=== PATIENT | female | born 1960 | race Caucasian/White ===

== ENCOUNTER 2017-04-08 11:13 | Emergency (ER) | payer MEDICARE, BC ==
[2017-04-08] MEDS ORDERED: Dexamethasone 4 MG/ML SDV IVPUSH ONE (11:44)
[2017-04-08] MEDS ORDERED: Cefepime 2 GM in Sodium Chloride 0.9% 50 ML IV ONE (11:51)
--- NOTE | 2017-04-08 11:54 | EDM.PDOC ---
ED HPI GENERAL MEDICAL PROBLEM - General Chief Complaint: Respiratory Problem Stated Complaint: TROUBLE BREATHING Time Seen by Provider: 04/08/17 11:28 Source of Information: Reports: Patient History Limitations: Reports: No Limitations - History of Present Illness INITIAL COMMENTS - FREE TEXT/NARRATIVE: Trang is a 57 year old female who presents to the ER with c/o trouble breathing. She reports she has a history of breast cancer with mets to her lungs. She started an immunotherapy regimen on February 16, 2017. Her last infusion was 2017. She reports that a side effect of the immunotherapy is inflammation. She reports that since her last infusion she has felt fatigued and had increased work of breathing. She reports that yesterday into today this has gotten worse. She reports she gets very fatigued and short of breath with any activity. Her O2 sats on initial presentation were 77% on RA. O2 sat increased to 94% on 3 L O2. Does report she has had a decreased appetite. Patient denies any pain. Denies any N/V/D, fever, chills. Does report she checks her temperature regularly. Her temperature last night was 99.5 deg F. She reports she did take some Tylenol and it has been normal ever since. She has no other complaints outside of the shortness of breath. She does have some obvious inflammation to her hands. Reports she has had this rash on her hands since starting the immunotherapy. Onset Date: 04/06/17 Duration: Getting Worse Location: Reports: Chest Quality: Reports: Other (difficulty breathing) Improves with: Reports: None Worsens with: Reports: Movement Context: Reports: Activity Associated Symptoms: Reports: Shortness of Breath, Weakness. 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 Denies: Chills HEENT: Reports: No Symptoms Respiratory: Reports: Shortness of Breath, Cough, Sputum. Denies: Wheezing, Pleuritic Chest Pain, Hemoptysis Cardiovascular: Reports: Dyspnea on Exertion, Other (tachycardia). Denies: Chest Pain, Blood Pressure Problem, Edema, Lightheadedness, Palpitations, Syncope Endocrine: Reports: Fatigue GI/Abdominal: Reports: Decreased Appetite. Denies: Abdominal Pain, Black Stool , Bloody Stool, Constipation, Diarrhea, Nausea, Vomiting : Reports: No Symptoms. Denies: Dysuria, Frequency, Urgency Musculoskeletal: Reports: No Symptoms Skin: Reports: Rash (bilateral hands) Neurological: Reports: Weakness. Denies: Confusion, Dizziness, Headache, Syncope Psychiatric: Reports: Anxiety Hematologic/Lymphatic: Reports: No Symptoms Immunologic: Reports: No Symptoms ED EXAM, GENERAL - Physical Exam Exam: See Below Exam Limited By: No Limitations General Appearance: Alert, WD/WN, Mild Distress Eye Exam: Bilateral Eye: EOMI, Normal Fundi, Normal Inspection, PERRL Nose: Normal Inspection, Normal Mucosa, No Blood Throat/Mouth: Normal Inspection, Normal Lips, Normal Teeth, Normal Gums, Normal Oropharynx, Normal Voice, No Airway Compromise Head: Atraumatic, Normocephalic Neck: Normal Inspection, Supple, Non-Tender, Full Range of Motion Respiratory/Chest: No Accessory Muscle Use, Respiratory Distress (mild), Decreased Breath Sounds Cardiovascular: No Edema, No Murmur, Tachycardia Back Exam: Normal Inspection, Full Range of Motion, NT Extremities: Normal Inspection, Normal Range of Motion, Non-Tender, Normal Capillary Refill, No Pedal Edema Neurological: Alert, Oriented, CN II-XII Intact, Normal Cognition, Normal Gait, Normal Reflexes, No Motor/Sensory Deficits Psychiatric: Anxious, Tearful Skin Exam: Warm, Dry, Intact, Normal Color, Rash (bilateral hands) Course - Vital Signs Last Recorded V/S: Last Vital Signs Temp 98.4 F 04/08/17 11:22 Pulse 136 H 04/08/17 11:35 Resp 20 04/08/17 11:35 BP 147/62 H 04/08/17 11:22 Pulse Ox 96 04/08/17 11:35 - Orders/Labs/Meds Labs: Laboratory Tests 04/08/17 04/08/17 Range/Units 11:43 11:43 WBC 11.0 H (5.0-10.0) 10^3/uL RBC 4.66 (4.00-5.50) 10^6/uL Hgb 13.0 (12.0-16.0) g/dL Hct 40.6 (37.0-47.0) % MCV 87.1 (82.0-94.0) fL MCH 27.9 (27.0-32.0) pg MCHC 32.0 L (33.0-38.0) g/dL RDW Coeff of Annette 16.1 H (11.0-15.0) % Plt Count 270 (150-400) 10^3/uL Neut % (Auto) 81.9 (35-85) % Lymph % (Auto) 4.5 L (10-55) % [place] % (Auto) 11.8 (0-16) % Eos % (Auto) 1.5 (0-5) % Baso % (Auto) 0.3 (0-3) % Neut # (Auto) 9.01 H (1.80-7.00) 10^3/uL Lymph # (Auto) 0.49 L (1.00-4.80) 10^3/uL [place] # (Auto) 1.30 H (0.00-0.80) 10^3/uL Eos # (Auto) 0.17 (0.00-0.45) 10^3/uL Baso # (Auto) 0.03 10^3/uL Sodium 137 (136-145) mEq/L Potassium 3.9 (3.5-5.0) mEq/L Chloride 100 (98-106) mEq/L Carbon Dioxide 28 (21-32) mmol/L BUN 16 (7-18) mg/dL Creatinine 0.9 (0.6-1.0) mg/dL Est Cr Clr Drug Dosing 65.34 mL/min Estimated GFR (MDRD) > 60 (>=60) mL/min Glucose 127 H (75-99) mg/dL Calcium 9.7 (8.4-10.1) mg/dL Total Bilirubin 0.4 (0.0-1.0) mg/dL AST 74 H (15-37) U/L ALT 53 (12-78) U/L Alkaline Phosphatase 183 H (46-116) U/L C-Reactive Protein 14.4 H (0.2-0.8) mg/dL Total Protein 7.1 (6.4-8.2) g/dL Albumin 3.1 L (3.4-5.0) g/dL Meds: Medications Discontinued Medications Generic Name Dose Route Start Last Admin Trade Name Eugenio PRN Reason Stop Dose Admin Dexamethasone 10 mg 04/08/17 11:44 04/08/17 12:16 Dexamethasone IVPUSH 04/08/17 11:45 10 mg ONETIME ONE Administration Cefepime HCl 2 gm/ Sodium 50 mls @ 100 mls/hr 04/08/17 11:51 04/08/17 12:24 Chloride IV 04/08/17 12:20 100 mls/hr ONETIME ONE Administration Sodium Chloride Confirm 04/08/17 12:17 04/08/17 12:30 Normal Saline Administered 04/08/17 12:18 Not Given Dose 50 mls @ as directed .ROUTE .STK-MED ONE - Re-Assessments/Exams Free Text/Narrative Re-Assessment/Exam: Discussed case with Dr. Rojas ([facility]). Recommend giving 10 mg dexamethasone and cefepime and transfer to [place]. CTA chest shows significant progression of disease since scan in January 2017, increase in bony destruction of multiple ribs, and increased fluid on the right. Also shows DILLON and LLL infiltrates suggestive of pneumonia. Labs and CT findings discussed with patient. Discussed this with Dr. Woodard. [facility] called to arrange for transfer. Patient will be going to [facility] Rm 748. Patients O2 saturations improved on 4 L O2. Does continue to desat some with activity. Will br transported via S for oxygen therapy. Discussed risks and benefits of transfer with patient. Risks of transfer include vehicle crash, worsening of condition, or enroute. Benefits of transfer include oncology care and familiar physician with case on oncology floor. Risks of nontransfer include , worsening of condition, no oncology care. Benefits of transfer include familiar environment and close to home. Patient verbalized understanding and is agreeable to transfer. PLEASE SEE NURSES NOTE FOR PMH, PSH, FH, AND SH. Departure - Departure Time of Disposition: 13:19 Disposition: DC/Tfer to Acute Hospital 02 Condition: Fair Clinical Impression: Metastatic breast cancer Pneumonia involving left lung Qualifiers: Pneumonia type: due to unspecified organism Lung location: unspecified part of lung Qualified Code(s): J18.9 - Pneumonia, unspecified organism - Discharge Information Referrals: Sondra Shea PA [Primary Care Provider] - Forms: ED Department Discharge Additional Instructions: Transfer tn BLS to [facility] room 748 O2 as needed to maintain O2 sat > 92% enroute Dr. Rojas accepting physician
[2017-04-08] MEDS ORDERED: Sodium Chloride 0.9% 50 ML ONE (12:17)
[2017-04-08 12:27] LABS: CHLORIDE,CL 100 mEq/L (98-106); SODIUM,NA 137 mEq/L (136-145)
== END 2017-04-08 13:50 ==
LOC: CC.ED 11:13
DX: J18.9 Pneumonia, unspecified organism (principal); C50.919 Malignant neoplasm of unspecified site of unspecified female breast; Z88.2 Allergy status to sulfonamides
CPT/HCPCS: 80053; 85025; 86140; 93005; 96365; 96375; 99285; J0692; J1100; J7050

== ENCOUNTER 2017-05-15 10:55 | Emergency (ER) | payer MEDICARE, BC ==
[2017-05-15] MEDS ORDERED: Albuterol/Ipratropium 3.0-0.5 MG/3 ML Neb Soln NEB ONE (11:02)
--- NOTE | 2017-05-15 11:24 | EDM.PDOC ---
ED HPI GENERAL MEDICAL PROBLEM - General Chief Complaint: Respiratory Problem Stated Complaint: cough Time Seen by Provider: 05/15/17 11:01 Source of Information: Reports: Patient History Limitations: Reports: No Limitations - History of Present Illness INITIAL COMMENTS - FREE TEXT/NARRATIVE: This patient is a 57 year old female that presents to the ER. The patient reports that she has history of breast cancer that has spread to bilateral lungs. Patient reports that she wears oxygen almost all the time. Patient reprots last radiation was in 2016. Patent report she was taking an experimental chemo drug for her cancer, but had to discontinue. Patient reports that she has been instructed by her oncologist if she starts having any shortness of breath or cough that she needs to be seen right away. Patient reports that started last night with productive cough yellow mucous, mild chest congestion. Patient reports that she feels short of breath all the time especially with ambulation. She reports it may be a little worse today. Patient Onset Date: 05/14/17 Severity: Mild Improves with: Reports: None Worsens with: Reports: None Associated Symptoms: Reports: Cough, cough w sputum, Shortness of Breath. 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 - Related Data Allergies Allergy/AdvReac Type Severity Reaction Status Date / Time Sulfa (Sulfonamide Allergy Rash Verified 05/15/17 11:02 Antibiotics) Home Meds: Home Meds LORazepam 1 mg PO BEDTIME 04/08/17 [History] predniSONE 20 mg PO DAILY 05/15/17 [History] Past Medical History Respiratory History: Reports: Bronchitis, Recurrent, Pneumonia, Recurrent, SOB, Other (See Below) Other Respiratory History: lung cancer since 2010 Gastrointestinal History: Reports: None 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: , 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 Musculoskeletal History: Reports: Other (See Below) Other Musculoskeletal History: chronic right shoulder pain Hematologic History: Reports: Anemia, Blood Transfusion(s), Other (See Below) Other Hematologic History: hgb low during chemo treatments Immunologic History: Reports: Immunosuppression, Other (See Below) Other Immunologic History: d/t side effect of medications Oncologic (Cancer) History: Reports: Lung - Past Surgical History Respiratory Surgical History: Reports: Lung Resection Other Respiratory Surgeries/Procedures: removed about 30% of right lung and about 10-15% of left lung GI Surgical History: Reports: Colonoscopy Musculoskeletal Surgical History: Reports: None Oncologic Surgical History: Reports: Mastectomy Social & Family History - Family History Family Medical History: Noncontributory - Tobacco Use Smoking Status *Q: Never Smoker - Caffeine Use Caffeine Use: Reports: None - Recreational Drug Use Recreational Drug Use: No ED ROS GENERAL - Review of Systems Review Of Systems: See Below Constitutional: Reports: No Symptoms HEENT: Reports: No Symptoms Respiratory: Reports: Shortness of Breath, Cough, Sputum Cardiovascular: Reports: No Symptoms Endocrine: Reports: No Symptoms GI/Abdominal: Reports: No Symptoms : Reports: No Symptoms Musculoskeletal: Reports: No Symptoms Skin: Reports: No Symptoms Neurological: Reports: No Symptoms Psychiatric: Reports: No Symptoms Hematologic/Lymphatic: Reports: No Symptoms Immunologic: Reports: No Symptoms ED EXAM, GENERAL - Physical Exam Exam: See Below Exam Limited By: No Limitations General Appearance: Alert, WD/WN, No Apparent Distress Eye Exam: Bilateral Eye: Normal Inspection, PERRL Ears: Normal External Exam, Normal Canal, Hearing Grossly Normal, Normal TMs Ear Exam: Bilateral Ear: Auricle Normal, Canal Normal, TM normal Nose: Normal Inspection, Normal Mucosa, No Blood Throat/Mouth: Normal Inspection, Normal Lips, Normal Teeth, Normal Gums, Normal Oropharynx, Normal Voice, No Airway Compromise Head: Atraumatic, Normocephalic Neck: Normal Inspection, Supple, Non-Tender, Full Range of Motion Respiratory/Chest: No Respiratory Distress, No Accessory Muscle Use, Chest Non- Tender, Decreased Breath Sounds (moderately/severe throughout). No: Respiratory Distress, Rhonchi, Stridor, Accessory Muscle Use, Retractions, Splinting, Prolonged Expiration Cardiovascular: Normal Peripheral Pulses, No Edema, No Gallop, No JVD, No Murmur , No Rub, Tachycardia (108 on exam) Peripheral Pulses: 2+: Radial (L), Radial (R), Posterior Tibial (L), Posterior Tibial (R) GI/Abdominal: Normal Bowel Sounds, Soft, Non-Tender, No Organomegaly, No Distention, No Abnormal Bruit, No Mass, Pelvis Stable (Female) Exam: Deferred Rectal (Female) Exam: Deferred Back Exam: Normal Inspection, Full Range of Motion Extremities: Normal Inspection, Normal Range of Motion, Non-Tender, No Pedal Edema, Normal Capillary Refill Neurological: Alert, Oriented, Normal Gait Psychiatric: Normal Affect, Normal Mood Skin Exam: Warm, Dry, Intact, Normal Color, No Rash Lymphatic: No Adenopathy Course - Vital Signs Last Recorded V/S: Last Vital Signs Temp 98.5 F 05/15/17 10:56 Pulse 129 H 05/15/17 10:56 Resp 20 05/15/17 10:56 BP 127/106 H 05/15/17 10:56 Pulse Ox 93 L 05/15/17 10:56 - Orders/Labs/Meds Orders: Active Orders 24 hr Category Date Time Status RT Aerosol Therapy [RC] ASDIRECTED Care 05/15/17 11:03 Active Chest 2V [CR] Stat Exams 05/15/17 11:02 Taken CULTURE BLOOD [BC] Stat Lab 05/15/17 11:17 Received CULTURE BLOOD [BC] Stat Lab 05/15/17 11:27 Received Blood Culture x2 Reflex Set [OM.PC] Stat Oth 05/15/17 11:02 Ordered Labs: Laboratory Tests 05/15/17 05/15/17 05/15/17 Range/Units 11:17 11:17 11:27 WBC 7.7 (5.0-10.0) 10^3/uL RBC 4.67 (4.00-5.50) 10^6/uL Hgb 13.0 (12.0-16.0) g/dL Hct 43.0 (37.0-47.0) % MCV 92.1 (82.0-94.0) fL MCH 27.8 (27.0-32.0) pg MCHC 30.2 L (33.0-38.0) g/dL RDW Coeff of Annette 18.1 H (11.0-15.0) % Plt Count 246 (150-400) 10^3/uL Neut % (Auto) 75.4 (35-85) % Lymph % (Auto) 4.8 L (10-55) % [place] % (Auto) 14.4 (0-16) % Eos % (Auto) 4.8 (0-5) % Baso % (Auto) 0.6 (0-3) % Neut # (Auto) 5.82 (1.80-7.00) 10^3/uL Lymph # (Auto) 0.37 L (1.00-4.80) 10^3/uL [place] # (Auto) 1.11 H (0.00-0.80) 10^3/uL Eos # (Auto) 0.37 (0.00-0.45) 10^3/uL Baso # (Auto) 0.05 10^3/uL Sodium 143 (136-145) mEq/L Potassium 4.6 (3.5-5.0) mEq/L Chloride 102 (98-106) mEq/L Carbon Dioxide 34 H (21-32) mmol/L BUN 17 (7-18) mg/dL Creatinine 0.8 (0.6-1.0) mg/dL Est Cr Clr Drug Dosing 73.51 mL/min Estimated GFR (MDRD) > 60 (>=60) mL/min Glucose 109 H (75-99) mg/dL Lactic Acid 0.9 (0.4-2.0) mmol/L Calcium 9.9 (8.4-10.1) mg/dL Total Bilirubin 0.4 (0.0-1.0) mg/dL AST 35 (15-37) U/L ALT 24 (12-78) U/L Alkaline Phosphatase 120 H (46-116) U/L C-Reactive Protein 2.5 H (0.2-0.8) mg/dL Total Protein 6.8 (6.4-8.2) g/dL Albumin 3.4 (3.4-5.0) g/dL Meds: Medications Discontinued Medications Generic Name Dose Route Start Last Admin Trade Name Freq PRN Reason Stop Dose Admin Albuterol/Ipratropium 3 ml 05/15/17 11:02 05/15/17 11:18 Duoneb 3.0-0.5 Mg/3 Ml NEB 05/15/17 11:03 3 ml ONETIME ONE Administration Ceftriaxone Sodium 1 gm 05/15/17 12:41 Rocephin IM 05/15/17 12:42 ONETIME ONE Methylprednisolone Sodium Succinate 125 mg 05/15/17 12:41 Solu-Medrol IM 05/15/17 12:42 NOW STA - Radiology Interpretation Free Text/Narrative:: CXR; No infiltreates, no acute worsening changes. Departure - Departure Time of Disposition: 12:41 Disposition: Home, Self-Care 01 Condition: Fair Clinical Impression: Acute bronchitis Qualifiers: Bronchitis organism: unspecified organism Qualified Code(s): J20.9 - Acute bronchitis, unspecified - Discharge Information Instructions: Acute Bronchitis, Adult, [id number] Forms: ED Department Discharge Additional Instructions: Followup with your primary care provider Return to the ER for worsening of condition or any emergent concerns Cefdinir 300mg 1 pill twice a day for 10 days #20 no refill Medrol Dose Pack as directed #1 no refill - My Orders Last 24 Hours: My Active Orders 05/15/17 11:02 Chest 2V [CR] Stat Blood Culture x2 Reflex Set [OM.PC] Stat 05/15/17 11:03 RT Aerosol Therapy [RC] ASDIRECTED 05/15/17 11:17 CULTURE BLOOD [BC] Stat 05/15/17 11:27 CULTURE BLOOD [BC] Stat - Assessment/Plan Last 24 Hours: My Active Orders 05/15/17 11:02 Chest 2V [CR] Stat Blood Culture x2 Reflex Set [OM.PC] Stat 05/15/17 11:03 RT Aerosol Therapy [RC] ASDIRECTED 05/15/17 11:17 CULTURE BLOOD [BC] Stat 05/15/17 11:27 CULTURE BLOOD [BC] Stat Plan: PLEASE SEE RN NOTE FOR PFSH.
[2017-05-15 11:39] LABS: CHLORIDE,CL 102 mEq/L (98-106); SODIUM,NA 143 mEq/L (136-145)
[2017-05-15] MEDS ORDERED: cefTRIAXone 1 GM Vial IM ONE (12:41)
[2017-05-15] MEDS ORDERED: methylPREDNISolone Sodium Succinate 125 MG/2 ML SDV IM STA (12:41)
[2017-05-15] MEDS ORDERED: Lidocaine 1% 20 ML MDV INJECT ONE (12:54)
== END 2017-05-15 13:13 | disposition home or self-care (01) ==
LOC: CC.ED 10:55
DX: J20.9 Acute bronchitis, unspecified (principal); Z88.2 Allergy status to sulfonamides; Z79.899 Other long term (current) drug therapy
CPT/HCPCS: 36415; 71046; 80053; 83605; 85025; 86140; 87040; 94640; 96372; 99283; J0696; J2930